=== PATIENT | female | born 1995 | race Caucasian/White ===

== ENCOUNTER 2017-02-16 07:28 | Emergency (ER) | payer OTHER ==
--- NOTE | 2017-02-16 07:42 | UC ---
Ear Complaint HPI - HPI Summary HPI Summary: Pt with head congestion x 3 days. Pt states since yesterday progressive right ear pain. States feells full and pressure, decreased sound. No fevers, chills No cp, sob, abd pain. No n/v/d. Pt has taken decongestant without relief. No rash. No drainage Pts medications reviewed this visit - History of Current Complaint Stated Complaint: EAR PAIN Time Seen by Provider: 02/16/17 07:38 Hx Obtained From: Patient Hx Last Menstrual Period: now ?: No Onset/Duration: Gradual Onset Severity Initially: Mild Severity Currently: Moderate Alleviating Factors: OTC Meds Associated Signs/Symptoms: Positive: URI Symptoms. Negative: Discharge - Allergies/Home Medications Allergies/Adverse Reactions: Allergies Allergy/AdvReac Type Severity Reaction Status Date / Time Lidocaine Allergy Severe Anaphylatic Verified 02/16/17 07:35 Shock Penicillins Allergy Severe Anaphylatic Verified 02/16/17 07:35 Shock PMH/Surg Hx/FS Hx/Imm Hx Previously Healthy: Yes - Surgical History Surgical History: Yes Surgery Procedure, Year, and Place: APPENDECTOMY. 04/2013 - L4 -5 & L5-S1 MICRODISKECTOMY - Family History Known Family History: Positive: None, Respiratory Disease - asthma - Social History Occupation: Student Lives: Dormitory/Roommates Alcohol Use: Occasionally Substance Use Type: Prescribed Smoking Status (MU): Never Smoked Tobacco - Immunization History Most Recent Influenza Vaccination: 2013 Most Recent Tetanus Shot: unk Most Recent Pneumonia Vaccination: no Review of Systems Constitutional: Fever, Fatigue Skin: Negative ENT: Ear Ache, Sinus Congestion Respiratory: Negative All Other Systems Reviewed And Are Negative: Yes Physical Exam Triage Information Reviewed: Yes Appearance: Well-Appearing, No Pain Distress, Well-Nourished Vital Signs Reviewed: Yes Eye Exam: Normal Eyes: Positive: Conjunctiva Clear ENT: Positive: Hearing grossly normal, Pharynx normal, Pharyngeal erythema, Nasal congestion, TM bulging, TM red. Negative: TMs normal, Tonsillar swelling Dental Exam: Normal Neck exam: Normal Neck: Positive: Supple, Nontender, No Lymphadenopathy Respiratory Exam: Normal Respiratory: Positive: Chest non-tender, No respiratory distress, No accessory muscle use Cardiovascular Exam: Normal Cardiovascular: Positive: RRR, No Murmur, Pulses Normal Abdominal Exam: Normal Abdomen Description: Positive: Nontender, No Organomegaly, Soft Bowel Sounds: Positive: Present Musculoskeletal Exam: Normal Neurological Exam: Normal Neurological: Positive: Alert Psychological Exam: Normal Skin Exam: Normal Ear Complaint Course/Dx - Course Course Of Treatment: pt with URI with progressive right ear pain. Ear TM with fluid, erythema, buldging. Will start abx. flonase. secretion precaution. class note - Differential Dx/Diagnosis Provider Diagnoses: URI. Otitis media Discharge - Discharge Plan Condition: Stable Disposition: HOME Prescriptions: Azithromycin TAB* [Zithromax TAB (Z-FRIDA) 250 mg #6 tabs] 2 tab PO .TODAY, THEN 1 DAILY #1 frida Fluticasone NASAL SPRAY 50MCG* [Flonase NASAL SPRAY 50MCG*] 2 spray BOTH NARES DAILY #1 btl Patient Education Materials: Otitis Media (ED) Forms: *School Release Referrals: Nafisa Mancia DO [Primary Care Provider] - Additional Instructions: - Stay well hydrated. Drink plenty of non-alcoholic, non-caffinated beverages - Okay to alternate ibuprofen (Advil, Motrin) and Tylenol every 3 hours for pain. Take with food. Do NOT take for more than 4-5 days - Stay well hydrated . Avoid excess caffeine until your symptoms have resolved. - Upper respiratory infections are spread by oral secretions - do not share eating or drinking utensils until you symptoms are resolved. Clean items that may get your secretions such as cell phones, ipads, computer mouse, television remotes - Take antibiotics as prescribed until gone. After you have been on antibiotics for 2 days, change your toothbrush and your pillowcase - Use nasal spray as prescribed -Okay to take over the counter decongestants. - Contact your doctor or [place] for follow-up appointment. Contact your doctor or return with questions or concerns
[2017-02-16 07:46] VITALS: BP 117/64
[2017-02-16] MEDS ORDERED: Acetaminophen TAB* 325 MG PO ONE (08:07)
== END 2017-02-16 08:15 | disposition home or self-care (01) ==
LOC: UCEAST 07:28
DX: H66.90 Otitis media, unspecified, unspecified ear (principal); Z88.0 Allergy status to penicillin
CPT/HCPCS: 99212; A9270-GY; G0463

== ENCOUNTER 2017-03-17 23:11 | Emergency (ER) | payer OTHER ==
[2017-03-18] MEDS ORDERED: NS 0.9% 1000 ML* 1,000 ML IV ONE (02:10)
[2017-03-18] MEDS ORDERED: LORazepam INJ* 2 MG/ML 1 ML VIAL IV PUSH ONE (02:11)
[2017-03-18 04:49] VITALS: BP 113/69
--- NOTE | 2017-03-27 01:56 | ED ---
Luis Granados Natalie, scribed for Ravindra Atkins MD on 03/18/17 at 0235 . Dizziness - HPI Summary HPI Summary: The pt is a 21 y/o F presenting to the ED c/o dizziness, blurry vision, and right-sided numbness with onset at 19:30. She lied down to no relief and she felt palpitations. Pt also c/o nausea and foul-smelling odors. Pt is dizzy but denies nausea in the ED. She has not had similar episodes in the past, and has no history of panic attacks or anxiety. Pt takes 30mg Adderall daily. - History Of Current Complaint Chief Complaint: EDDizziness Stated Complaint: DIZZINESS Time Seen by Provider: 03/18/17 02:02 Hx Obtained From: Patient Onset/Duration: Still Present Timing: Hours - since 19:30 Severity Initially: Moderate Severity Currently: Moderate Character: Dizzy Aggravating Factor(s): Position Change - pt lied down to no relief, but her heart rate increased Associated Signs And Symptoms: Positive: Nausea, Visual Changes - blurriness, Other: - smelling foul odors, R-sided numbness. Negative: Vomiting - Allergies/Home Medications Allergies/Adverse Reactions: Allergies Allergy/AdvReac Type Severity Reaction Status Date / Time Lidocaine Allergy Severe Anaphylatic Verified 03/17/17 23:18 Shock Penicillins Allergy Severe Anaphylatic Verified 03/17/17 23:18 Shock PMH/Surg Hx/FS Hx/Imm Hx Previously Healthy: Yes Endocrine/Hematology History: Denies: Hx Diabetes, Hx Thyroid Disease Cardiovascular History: Denies: Hx Hypertension, Hx Pacemaker/ICD Respiratory History: Denies: Hx Asthma, Hx Chronic Obstructive Pulmonary Disease (COPD) GI History: Denies: Hx Ulcer History: Denies: Hx Renal Disease Sensory History: Denies: Hx Hearing Aid Psychiatric History: Denies: Hx Panic Disorder - Surgical History Surgery Procedure, Year, and Place: APPENDECTOMY. 04/2013 - L4 -5 & L5-S1 MICRODISKECTOMY Infectious Disease History: No Infectious Disease History: Denies: Hx Hepatitis, Hx Human Immunodeficiency Virus (HIV), History Other Infectious Disease, Traveled Outside the [place] in Last 30 Days - Family History Known Family History: Positive: Respiratory Disease - asthma - Social History Occupation: Student Lives: Dormitory/Roommates Alcohol Use: Occasionally Substance Use Type: Reports: Prescribed Smoking Status (MU): Never Smoked Tobacco Review of Systems Positive: Blurred Vision ENT: Other - smelling foul odors Positive: Nausea. Negative: Vomiting Neurological: Other - Dizziness Positive: Numbness - R side All Other Systems Reviewed And Are Negative: Yes Physical Exam - Summary Physical Exam Summary: VITAL SIGNS: Reviewed. GENERAL: Patient is a well-developed and nourished female who is lying comfortable in the stretcher. Patient is not in any acute respiratory distress. HEAD AND FACE: No signs of trauma. No ecchymosis, hematomas or skull depressions. No sinus tenderness. EYES: PERRLA, EOMI x 2, No injected conjunctiva, no nystagmus. EARS: Hearing grossly intact. Ear canals and tympanic membranes are within normal limits. MOUTH: Oropharynx within normal limits. NECK: Supple, trachea is midline, no adenopathy, no JVD, no carotid bruit, no c- spine tenderness, neck with full ROM. CHEST: Symmetric, no tenderness at palpation LUNGS: Clear to auscultation bilaterally. No wheezing or crackles. CVS: Regular rate and rhythm, S1 and S2 present, no murmurs or gallops appreciated. ABDOMEN: Soft, non-tender. No signs of distention. No rebound no guarding, and no masses palpated. Bowel sounds are normal. EXTREMITIES: FROM in all major joints, no edema, no cyanosis or clubbing. NEURO: Alert and oriented x 3. No acute neurological deficits. Speech is normal and follows commands. SKIN: Dry and warm Triage Information Reviewed: Yes Vital Signs On Initial Exam: Initial Vitals Temp Pulse Resp BP Pulse Ox 97.5 F 95 16 149/95 100 03/17/17 23:14 03/17/17 23:14 03/17/17 23:14 03/17/17 23:14 03/17/17 23:14 Vital Signs Reviewed: Yes Diagnostics - Vital Signs Vital Signs Temp Pulse Resp BP Pulse Ox 03/17/17 23:14 97.5 F 95 16 149/95 100 - Laboratory Lab Statement: Any lab studies that have been ordered have been reviewed, and results considered in the medical decision making process. - EKG 23:23 Cardiac Rate: NL EKG Rhythm: Sinus Rhythm - 98 bpm EKG Interpretation: Nml axis. Nml interval. No ischemic change. Dizzy Course/Dx - Diagnoses Provider Diagnoses: Anxiety Discharge - Discharge Plan Condition: Stable Disposition: HOME Patient Education Materials: Anxiety (ED) Referrals: Nafisa Mancia DO [Primary Care Provider] - 3 Days Additional Instructions: Follow up with your primary care provider in 3 days. Return to the emergency department for any new or worsening symptoms. The documentation as recorded by the Luis sanchez Natalie accurately reflects the service I personally performed and the decisions made by , Ravindra Atkins MD.
== END 2017-03-18 03:15 | disposition home or self-care (01) ==
LOC: ED 23:11
DX: F41.9 Anxiety disorder, unspecified (principal); Z88.0 Allergy status to penicillin
CPT/HCPCS: 93005; 96360; 96374; 99282; J2060

== ENCOUNTER 2017-09-16 16:14 | Emergency (ER) | payer OTHER ==
[2017-09-16 16:28] VITALS: BP 103/66
--- NOTE | 2017-09-16 16:52 | UC ---
Julianne Granados Julia, scribed for Brannon Simms MD on 09/16/17 at 1638 . Abdominal Pain Female HPI - HPI Summary HPI Summary: This patient is a 21 year old F presenting to [facility] with a chief complaint of RLQ and R pelvic pain starting yesterday. Pain is 7/10 in severity. Denies vaginal discharge or bleeding. Pain started after sexual intercourse and has been increasing since. SHx of appendectomy. - History of Current Complaint Chief Complaint: UCAbdominalPain Stated Complaint: ABD PAIN Time Seen by Provider: 09/16/17 16:20 Hx Obtained From: Patient Hx Last Menstrual Period: 3-4 weeks ago Onset/Duration: Lasting Hours Timing: Constant Severity Initially: Mild Severity Currently: Moderate Pain Intensity: 7 Pain Scale Used: 0-10 Numeric Location: Discrete At: RLQ, Other - R pelvic Aggravating Factor(s): Nothing Alleviating Factor(s): Nothing Associated Signs and Symptoms: Negative: Vaginal Bleeding, Vaginal Discharge Allergies/Adverse Reactions: Allergies Allergy/AdvReac Type Severity Reaction Status Date / Time MS Lidocaine [Lidocaine] Allergy Severe Anaphylatic Verified 09/16/17 16:22 Shock MS Penicillins [Penicillins] Allergy Severe Anaphylatic Verified 09/16/17 16:22 Shock Home Medications: Home Medications Pindolol 1 tab PO BID 09/16/17 [History Confirmed 09/16/17] PMH/Surg Hx/FS Hx/Imm Hx Previously Healthy: Yes - Surgical History Surgical History: Yes Surgery Procedure, Year, and Place: APPENDECTOMY. 04/2013 - L4 -5 & L5-S1 MICRODISKECTOMY - Family History Known Family History: Positive: Respiratory Disease - asthma - Social History Alcohol Use: Weekly Substance Use Type: Prescribed Smoking Status (MU): Never Smoked Tobacco - Immunization History Most Recent Influenza Vaccination: 2013 Most Recent Tetanus Shot: unk Most Recent Pneumonia Vaccination: no Review of Systems Constitutional: Negative Gastrointestinal: Abdominal Pain Genitourinary: Negative, Other - R pelvic pain All Other Systems Reviewed And Are Negative: Yes Physical Exam - Summary Physical Exam Summary: VITAL SIGNS: Reviewed. GENERAL: Patient is a well-developed and nourished female who is lying comfortable in the stretcher. Patient is not in any acute respiratory distress. HEAD AND FACE: Normocephalic EYES: PERRLA, EOMI x 2. EARS: Hearing grossly intact. MOUTH: Oropharynx within normal limits. NECK: Supple, trachea is midline, no adenopathy, no JVD, no carotid bruit. CHEST: Symmetric, no tenderness at palpation LUNGS: Clear to auscultation bilaterally. No wheezing or crackles. CVS: Regular rate and rhythm, S1 and S2 present, no murmurs or gallops appreciated. ABDOMEN: Soft, Bowel sounds are normal. No abdominal abnormal pulsations. R pelvic area tenderness EXTREMITIES: Full ROM in all major joints, no edema, no cyanosis or clubbing. NEURO: Alert and oriented x 3. No acute neurological deficits. Speech is normal and follows commands. SKIN: Dry and warm Patient declined pelvic exam since she will go to the ED Triage Information Reviewed: Yes Vital Signs: Initial Vital Signs Temp 97.9 F 09/16/17 16:24 Pulse 70 09/16/17 16:24 Resp 18 09/16/17 16:24 BP 103/66 09/16/17 16:24 Pulse Ox 100 09/16/17 16:24 Vital Signs Reviewed: Yes Abd Pain Female Course/Dx - Course Course Of Treatment: Patient is a 21-year-old female who presents to the urgent care with chief complaint of right lower quadrant pain and right pelvic pain. The patient had an appendectomy therefore no worries for and acute appendicitis. However the patient has tenderness in the right pelvic area therefore I am worried about a ovarian cyst versus ovarian torsion. The patient reports that the pain is 7 out of 10 however increases when she moves and or she ambulates. Therefore, I believe the patient would benefit of an ultrasound. The patient will be referred to the emergency department for further assessment. The patient declined ambulance transfer. - Differential Dx/Diagnosis Provider Diagnoses: Right pelvic and right lower quadrant pain Discharge - Sign-Out/Discharge Documenting (check all that apply): Discharge/Admit/Transfer - Discharge Plan Condition: Stable Disposition: HOME Patient Education Materials: Pelvic Pain (ED) Referrals: Nafisa Mancia DO [Primary Care Provider] - Additional Instructions: Patient was discharged to the emergency department for further workup and management. Patient declined ambulance transportation. - Billing Disposition and Condition Condition: STABLE Disposition: HOME The documentation as recorded by the Julianne sanchez Julia accurately reflects the service I personally performed and the decisions made by Mendez craft Walter, MD.
== END 2017-09-16 16:35 | disposition home or self-care (01) ==
LOC: UCEAST 16:14
DX: R10.2 Pelvic and perineal pain (principal); R10.31 Right lower quadrant pain; Z90.89 Acquired absence of other organs; Z88.4 Allergy status to anesthetic agent; Z88.0 Allergy status to penicillin; Z82.5 Family history of asthma and other chronic lower respiratory diseases
CPT/HCPCS: 99212; G0463

== ENCOUNTER 2017-09-16 17:00 | Emergency (ER) | payer OTHER ==
[2017-09-16] MEDS ORDERED: Ketorolac INJ* 15 MG/ML 1 ML VIAL IV PUSH ONE (19:10)
[2017-09-16] MEDS ORDERED: NS 0.9% 1000 ML* 1,000 ML IV ONE (19:10)
[2017-09-16 20:29] LABS: ABS Basophils 0 10^3/ul (0-0.2); ABS Eosinophils 0.1 10^3/ul (0-0.6); ABS Lymphocytes 2.8 10^3/ul (1.0-4.8); ABS Monocytes 0.5 10^3/ul (0-0.8); ABS Neutrophils 3.7 10^3/ul (1.5-7.7); ABS Nucleated RBC 0 10^3/ul; Eosinophil % 0.8 % (0-6); Hematocrit 39 % (35-47); Hemoglobin 13.1 g/dl (12.0-16.0); Lymphocyte % 39.8 % (25-47); Mean Corpuscular HGB Conc 34 g/dl (31-36); Mean Corpuscular Hemoglobin 31 pg (27-31); Mean Corpuscular Volume 91 fL (80-97); Nucleated Red Blood Cells % 0.1; Platelet Count 210 10^3/ul (150-450); Red Blood Count 4.25 10^6/ul (4.0-5.4); Red Cell Distribution Width 13 % (10.5-15); White Blood Count 7.2 10^3/ul (3.5-10.8)
--- NOTE | 2017-09-16 22:09 | RAD ---
INDICATION: Right pelvic pain COMPARISON: Pelvic ultrasound dated August 29, 2016 TECHNIQUE: Real-time transabdominal and transvaginal ultrasound examination of the female pelvis including grayscale and Doppler color flow imaging. FINDINGS: Uterus: The uterus is normal in size and echogenicity measuring 9.6 x 3.9 x 5 point. The endometrial stripe is smooth and uniform measuring 7 mm in thickness. Ovaries: The right and left ovary measure 5.6 x 5.3 x 4.6 cm and 3.6 x 2.0 x 2.9 cm, respectively. Normal arterial and venous waveforms are identified. At the right ovary there is an anechoic and avascular structure measuring 4.7 cm in greatest dimension most compatible with a dominant follicle in a woman of this age. There is no free fluid in the cul-de-sac. IMPRESSION: In the right ovary there is an anechoic and avascular structure measuring 4.7 cm in greatest dimension most compatible with a dominant follicle in a woman of this age.
[2017-09-16] MEDS ORDERED: oxyCODONE/Acetamin 5/325 MG* TAB PO ONE (22:47)
[2017-09-16] MEDS ORDERED: [UNRECOGNIZED DRUG - OTHER] PO ONE (22:47)
--- NOTE | 2017-09-16 22:57 | ED ---
Saira Granados Elizabeth, scribed for Parveen Rice MD on 09/16/17 at 1915 . Abdominal Pain/Female - HPI Summary HPI Summary: This patient is a 21 year old F presenting to [facility] upon referral from with a chief complaint of sharp right abd pain and pelvic pain since 1 day ago. The patient reports that the pain began after intercourse and became worse today. The patient rates the pain 7/10 in severity. Symptoms aggravated by standing up and bending down. Symptoms alleviated by nothing. Patient reports nausea. Patient denies vomiting, dysuria, hematuria, diarrhea, and any change in diet. The patient reports LNMP was 4 weeks ago but notes that her period is usual pretty irregular. Per triage note, patient is unsure of status. The patient has previously had an appendectomy. - History of Current Complaint Chief Complaint: EDOBProblems Stated Complaint: ABD PAIN Time Seen by Provider: 09/16/17 19:02 Hx Obtained From: Patient Hx Last Menstrual Period: 3-4 weeks ago Onset/Duration: Sudden Onset - after intercourse, Lasting Days - 1 day, Still Present, Worse Since - this morning Timing: Constant Severity Initially: Mild Severity Currently: Moderate Pain Intensity: 7 Pain Scale Used: 0-10 Numeric Location: Discrete At: RLQ, Other - pelvic pain Aggravating Factor(s): Movement - standing up, bending down Alleviating Factor(s): Nothing Associated Signs and Symptoms: Positive: Nausea. Negative: Decreased Appetite, Vomiting, Diarrhea Allergies/Adverse Reactions: Allergies Allergy/AdvReac Type Severity Reaction Status Date / Time lidocaine Allergy Anaphylatic Verified 09/16/17 17:20 Shock Penicillins Allergy Anaphylatic Verified 09/16/17 17:20 Shock Home Medications: Home Medications Amphetamine/Dextroamph ER(NF) [Adderal XR (NF)] 30 mg PO DAILY 09/16/17 [ History Confirmed 09/16/17] Pindolol* 5 mg PO BID 09/16/17 [History Confirmed 09/16/17] PMH/Surg Hx/FS Hx/Imm Hx Endocrine/Hematology History: Denies: Hx Diabetes, Hx Thyroid Disease Cardiovascular History: Denies: Hx Hypertension, Hx Pacemaker/ICD Respiratory History: Denies: Hx Asthma, Hx Chronic Obstructive Pulmonary Disease (COPD) GI History: Denies: Hx Ulcer History: Denies: Hx Renal Disease Sensory History: Denies: Hx Hearing Aid Psychiatric History: Denies: Hx Panic Disorder - Surgical History Surgery Procedure, Year, and Place: APPENDECTOMY. 04/2013 - L4 -5 & L5-S1 MICRODISKECTOMY Infectious Disease History: No Infectious Disease History: Denies: Hx Hepatitis, Hx Human Immunodeficiency Virus (HIV), History Other Infectious Disease, Traveled Outside the [place] in Last 30 Days - Family History Known Family History: Positive: Respiratory Disease - asthma - Social History Alcohol Use: Weekly Substance Use Type: Reports: Prescribed Smoking Status (MU): Never Smoked Tobacco Review of Systems Negative: Fever Negative: Epistaxis Positive: Abdominal Pain - right side abd pain, Nausea. Negative: Vomiting, Diarrhea Genitourinary: Other - pelvic pain Negative: dysuria, hematuria All Other Systems Reviewed And Are Negative: Yes Physical Exam - Summary Physical Exam Summary: Appearance: Well-appearing, Well-nourished, lying in bed comfortably Skin: Warm, dry, no obvious rash Eyes: sclera anicteric, no conjunctival pallor ENT: mucous membranes moist, pharynx appears normal Neck: Supple, nontender Respiratory: Clear to auscultation, no signs of respiratory distress Cardiovascular: Normal S1, S2. No murmurs. Normal distal pulses in tibial and radial bilaterally. Abdomen: Soft, diffuse tenderness and some guarding that was nonfocal, normal active bowel sounds present Musculoskeletal: Normal, Strength/ROM Intact Neurological: A&Ox3, awake and alert, mentation is normal, speech is fluent and appropriate Psychiatric: affect is normal, does not appear anxious or depressed Triage Information Reviewed: Yes Vital Signs On Initial Exam: Initial Vitals Temp Pulse Resp BP Pulse Ox 97.7 F 78 14 124/70 97 09/16/17 17:21 09/16/17 17:21 09/16/17 17:21 09/16/17 17:21 09/16/17 17:21 Vital Signs Reviewed: Yes Diagnostics - Vital Signs Vital Signs Temp Pulse Resp BP Pulse Ox 09/16/17 17:21 97.7 F 78 14 124/70 97 - Laboratory Lab Results: Lab Results 09/16/17 09/16/17 Range/Units 20:11 20:11 WBC 7.2 (3.5-10.8) 10^3/ul RBC 4.25 (4.0-5.4) 10^6/ul Hgb 13.1 (12.0-16.0) g/dl Hct 39 (35-47) % MCV 91 (80-97) fL MCH 31 (27-31) pg MCHC 34 (31-36) g/dl RDW 13 (10.5-15) % Plt Count 210 (150-450) 10^3/ul MPV 8.0 (7.4-10.4) um3 Neut % (Auto) 52.3 (38-83) % Lymph % (Auto) 39.8 (25-47) % Lipscomb % (Auto) 6.5 (0-7) % Eos % (Auto) 0.8 (0-6) % Baso % (Auto) 0.6 (0-2) % Absolute Neuts (auto) 3.7 (1.5-7.7) 10^3/ul Absolute Lymphs (auto) 2.8 (1.0-4.8) 10^3/ul Absolute Monos (auto) 0.5 (0-0.8) 10^3/ul Absolute Eos (auto) 0.1 (0-0.6) 10^3/ul Absolute Basos (auto) 0 (0-0.2) 10^3/ul Absolute Nucleated RBC 0 10^3/ul Nucleated RBC % 0.1 Sodium 137 L (139-145) mmol/L Potassium 3.6 (3.5-5.0) mmol/L Chloride 101 (101-111) mmol/L Carbon Dioxide 28 (22-32) mmol/L Anion Gap 8 (2-11) mmol/L BUN 8 (6-24) mg/dL Creatinine 0.64 (0.51-0.95) mg/dL Est GFR ( Amer) 149.2 (>60) Est GFR (Non-Af Amer) 116.0 (>60) BUN/Creatinine Ratio 12.5 (8-20) Glucose 81 (70-100) mg/dL Calcium 9.1 (8.6-10.3) mg/dL Total Bilirubin 0.40 (0.2-1.0) mg/dL AST 20 (13-39) U/L ALT 20 (7-52) U/L Alkaline Phosphatase 50 (34-104) U/L Total Protein 7.0 (6.4-8.9) g/dL Albumin 4.2 (3.2-5.2) g/dL Globulin 2.8 (2-4) g/dL Albumin/Globulin Ratio 1.5 (1-3) Lipase < 10 L (11.0-82.0) U/L Beta HCG, Quant < 0.60 mIU/mL Result Diagrams: 09/16/17 20:11 09/16/17 20:11 Lab Statement: Any lab studies that have been ordered have been reviewed, and results considered in the medical decision making process. - Ultrasound No standard instances Ultrasound Interpretation: Positive (See Comments) - In the right ovary there is an anechoic and avascular structure in the right ovary consistent with a dominant follicle. There is no free fluid in the cul-de-sac. Ultrasound Interpretation Completed By: Radiologist Re-Evaluation - Re-Evaluation First Eval Re-Evaluation Time: 22:48 Change: Unchanged Comment: The patient still is having some pain. She has tenderness in the right lower quadrant. Ultrasound shows a dominant follicle on the right side. I suspect her pain is coming from this. Suspicion for other entities such as appendicitis is low given the fact that she has had no nausea or vomiting, her appetite is been good, her white cell count is normal, and her clinical course is not typical of appendicitis. Nonetheless I did warn her that if she develops worsening pain, particularly if it is associated with anorexia, nausea and vomiting, or fever, she would you to return as we would probably want to do more danced imaging such as a CT scan. However now my suspicion of that is quite low and I would not want to subject her to unnecessary pelvic radiation. The patient understands and is amenable to this approach. Abdominal Pain Fem Course/Dx - Diagnoses Provider Diagnoses: Ovarian cyst Provider Diagnoses: (Ruled Out): Acute appendicitis Discharge - Sign-Out/Discharge Documenting (check all that apply): Discharge/Admit/Transfer - Discharge Plan Condition: Good Disposition: HOME Prescriptions: Naproxen [Naprosyn 500 mg tab] 500 mg PO BID PRN #20 tablet PRN Reason: Pain Patient Education Materials: Ovarian Cyst (ED) Referrals: Nafisa Mancia DO [Primary Care Provider] - The documentation as recorded by the Saira sanchez Elizabeth accurately reflects the service I personally performed and the decisions made by me, Parveen Rice MD.
[2017-09-16 23:06] VITALS: BP 120/68
== END 2017-09-16 23:05 | disposition home or self-care (01) ==
LOC: ED 17:00
DX: N83.201 Unspecified ovarian cyst, right side (principal); Z88.0 Allergy status to penicillin
CPT/HCPCS: 36415; 76856; 80053; 83690; 84702; 85025; 96361; 96374; 99282; A9270-GY; J1885